=== PATIENT | female | born 1960 | race Caucasian/White ===

== ENCOUNTER → 2018-04-18 | Outpatient (CLI) | payer OTHER | LOC: BRMIMAGING 13:43 | PROVIDERS: ATTEND Internal Medicine | DX: M25.522 Pain in left elbow (principal); M25.521 Pain in right elbow; S52.124A Nondisplaced fracture of head of right radius, initial encounter for closed fracture; M25.422 Effusion, left elbow; W19.XXXA Unspecified fall, initial encounter | CPT/HCPCS: 73080-PO ==

== ENCOUNTER → 2018-04-21 | Outpatient (CLI) | payer OTHER | LOC: BRMIMAGING 09:30 | PROVIDERS: ATTEND Internal Medicine | DX: M25.531 Pain in right wrist (principal) | CPT/HCPCS: 73110-PO ==